=== PATIENT | female | born 2000 | race Caucasian/White ===

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

== ENCOUNTER 2019-03-02 13:46 | Emergency (ER) | payer OTHER ==
[2019-03-02 14:11] VITALS: BP 133/77
[2019-03-02] MEDS ORDERED: Ondansetron ODT TAB* 4 MG PO ONE (14:19)
--- NOTE | 2019-03-02 14:36 | UC ---
Head Injury HPI - HPI Summary HPI Summary: 18-year-old female comes in with a chief complaint of a head injury. Patient reports she fell and struck her head early Saturday morning approximately 2 AM. She reports she had been drinking alcohol. She reports loss of consciousness. Struck the left side of her head she has a generalized headache. Pain at the worst is 10 out of 10. Patient took some acetaminophen just prior to arrival and her headaches about a 6 out of 10. Does have some photophobia. She threw up once yesterday. She was nauseous all day yesterday and continues be nauseous today. Today she went to classes and being in class and taking a test make her symptoms worse. Denies any weakness or numbness difficulty with speech. - History Of Current Complaint Chief Complaint: UCHeadInjury Stated Complaint: SP FALL-PARADA INJURY Time Seen by Provider: 03/02/19 14:14 Hx Last Menstrual Period: 02/25/19 Pain Intensity: 6 - Allergies/Home Medications Allergies/Adverse Reactions: Allergies Allergy/AdvReac Type Severity Reaction Status Date / Time No Known Allergies Allergy Verified 03/02/19 14:08 PMH/Surg Hx/FS Hx/Imm Hx Previously Healthy: Yes - Surgical History Surgical History: None - Family History Known Family History: Positive: Cardiac Disease - Social History Alcohol Use: Occasionally Substance Use Type: None Smoking Status (MU): Never Smoked Tobacco Have You Smoked in the Last Year: No - Immunization History Vaccination Up to Date: Yes Review of Systems All Other Systems Reviewed And Are Negative: Yes Constitutional: Positive: Other - see hpi Skin: Positive: Negative Eyes: Positive: Photophobia ENT: Positive: Negative Respiratory: Positive: Negative Cardiovascular: Positive: Negative Gastrointestinal: Positive: Vomiting, Nausea Motor: Positive: Negative Neurovascular: Positive: Negative Musculoskeletal: Positive: Negative Neurological: Positive: Headache Psychological: Positive: Negative Is Patient Immunocompromised?: No Physical Exam Triage Information Reviewed: Yes Appearance: Well-Appearing, No Pain Distress, Well-Nourished Vital Signs: Initial Vital Signs Temp 98.1 F 03/02/19 14:05 Pulse 74 03/02/19 14:05 Resp 14 03/02/19 14:05 BP 133/77 03/02/19 14:05 Pulse Ox 100 03/02/19 14:05 Vital Signs Reviewed: Yes Eyes: Positive: Conjunctiva Clear, Other: - PERRLA EOMI. Mild photophobia. ENT: Positive: TMs normal - No hemotympanum.. Negative: Nasal drainage Neck: Positive: Supple, Nontender Respiratory: Positive: Lungs clear, Normal breath sounds, No respiratory distress Cardiovascular: Positive: RRR Musculoskeletal: Positive: Strength Intact, ROM Intact Neurological: Positive: Alert, Muscle Tone Normal, Other: - No focal neurologic deficit. Face is symmetric. Speech is normal. Arms and legs have full strength full range of motion. No decreased sensation. Psychological: Positive: Age Appropriate Behavior Skin Exam: Normal Head Injury Course/Dx - Course Course Of Treatment: Manager Sales Training: Julito Chicas F ([id number]) Home Health Assistant: RADHA ( NUANCE) Report Date: 03/02/2019 14:18:00 Report Status: Final ====== Start of Report Content Patient Name: BERNA MILLER Medical Record#: [id number] Ordering Physician: Bulmaro Meyer MD Acct.#: [id number] : 01/2001 Age: 18 Sex: F Location: [facility] Exam Date: 03/02/19 1418 ADM Status: [facility] Order Information: CT BRAIN WO Accession Number: [id number] CPT: 17010 INDICATION: Head injury with loss of consciousness and vomiting. COMPARISON: There are no prior studies available for comparison. TECHNIQUE: Contiguous axial sections of the brain were obtained from the skull base to the vertex without contrast. FINDINGS: The ventricles, cisterns and sulci are within normal limits. No significant focal abnormality or mass effect is seen. There is no evidence for hemorrhage. The visualized portion of the paranasal sinuses and mastoid air cells appear clear. IMPRESSION: NO EVIDENCE FOR ACUTE INTRACRANIAL ABNORMALITY. <Electronically signed by Julito Chicas MD in OV> 03/02/19 1501 Dictated By: Julito Chicas MD Dictated Date/Time: 03/02/191452 Transcribed Date/Time: 03/02/191452 Copy to: CC:No Primary Care Phys,NOPCP ; Bulmaro Meyer MD Imaging - [facility] Imaging - [facility] Imaging - [facility] [address] [address] ph [phone] ph ) ph ([phone]) End of Report Content I discussed the CT report with patient. Kylee the patient got in clinic did help with the nausea. Patient has concussion and she will be to take concussion precautions. She is not in sports at this time but she is at school at [employer]. Follow-up either with the [facility] or sports medicine get reevaluated sooner if worse or any questions or concerns. - Differential Dx/Diagnosis Provider Diagnosis: Concussion, Head injury Discharge ED - Sign-Out/Discharge Documenting (check all that apply): Patient Departure All imaging exams completed and their final reports reviewed: Yes - Discharge Plan Condition: Stable Disposition: HOME Prescriptions: Ondansetron ODT TAB* [Zofran 4 MG Odt TAB*] 4 mg PO Q6H PRN #10 tab.odt PRN Reason: Nausea Patient Education Materials: Head Injury (ED), Concussion (ED) Forms: *School Release Referrals: [facility] [Outside] Sports Medicine [facility] [Provider Group] Additional Instructions: FOLLOW UP WITH SPORTS MEDICINE FOR YOUR CONCUSSION. GET REEVALUATED IF NOT IMPROVING OR GO TO THE EMERGENCY DEPARTMENT WORSE; WEAKNESS, NUMBNESS, DIFFICULTY WITH VISION OR SPEECH, UNEXPLAINED VOMITING OR ANY QUESTIONS OR CONCERNS. - Billing Disposition and Condition Condition: STABLE Disposition: Home
== END 2019-03-02 15:38 | disposition home or self-care (01) ==
LOC: UCCORT 13:46
DX: S06.0X1A Concussion with loss of consciousness of 30 minutes or less, initial encounter (principal); W18.00XA Striking against unspecified object with subsequent fall, initial encounter; Y92.9 Unspecified place or not applicable; R11.2 Nausea with vomiting, unspecified
CPT/HCPCS: 70450; 99212; A9270-GY; G0463